=== PATIENT | male | born 1955 | race Caucasian/White ===

== ENCOUNTER 2019-02-06 21:17 | Emergency (ER) | payer BC, OTHER ==
--- NOTE | 2019-02-06 21:39 | ED ---
HPI Diabetic - HPI Summary HPI Summary: This patient is a 63 year old M brought to ED by EMS with a chief complaint of hypoglycemia since 2029 today. Per EMS, patient had BS 32 mg/dl, so he was given amp of D10 and PO glucose, which brought his BS up to 154 mg/dl. On arrival to ED, patient has BS 87 mg/dl. Patient is a known diabetic. He thinks he ate after taking insulin. Patient reports tiredness, fogginess. Patient denies pain, infection, fever, CP. The patient rates the pain 0/10 in severity. Symptoms aggravated by nothing. Symptoms alleviated by EMS treatment. - History Of Current Complaint Chief Complaint: EDDiabeticProb Time Seen by Provider: 02/06/19 21:30 Hx Obtained From: Patient, EMS Onset/Duration: Lasting Hours - Since 2029, Still Present Timing: Constant Severity Initially: Severe Severity Currently: Mild Character: Lethargic Aggravating: Nothing Alleviating: EMS Treatment Associated Signs & Symptoms: Negative - Pain, fever, infection, CP - Allergies/Home Medications Allergies/Adverse Reactions: Allergies Allergy/AdvReac Type Severity Reaction Status Date / Time No Known Allergies Allergy Verified 02/06/19 21:30 PMH/Surg Hx/FS Hx/Imm Hx Endocrine/Hematology History: Reports: Hx Diabetes Cardiovascular History: Reports: Hx Hypertension - Surgical History Surgery Procedure, Year, and Place: Right knee surgery Infectious Disease History: No Infectious Disease History: Denies: Traveled Outside the [place] in Last 30 Days - Family History Known Family History: Positive: Cardiac Disease - mother, Hypertension - mother , Diabetes - father - Social History Alcohol Use: Daily Hx Substance Use: No Substance Use Type: Reports: None Hx Tobacco Use: No Smoking Status (MU): Never Smoked Tobacco Review of Systems Negative: Fever Negative: Chest Pain Negative: Arthralgia, Myalgia Neurological: Other - Tiredness, fogginess All Other Systems Reviewed And Are Negative: Yes Physical Exam - Summary Physical Exam Summary: Appearance: Well appearing, no pain distress Skin: warm, dry, reflects adequate perfusion Head/face: normal Eyes: EOMI, LAKESHIA ENT: normal Neck: supple, non-tender Respiratory: CTA, breath sounds present Cardiovascular: RRR, pulses symmetrical Abdomen: non-tender, soft Musculoskeletal: normal, strength/ROM intact Neuro: normal, sensory motor intact, A&Ox3 Triage Information Reviewed: Yes Vital Signs On Initial Exam: Initial Vitals Temp Pulse Resp BP Pulse Ox 96.8 F 65 16 178/80 98 02/06/19 21:20 02/06/19 21:20 02/06/19 21:20 02/06/19 21:20 02/06/19 21:20 Vital Signs Reviewed: Yes Diagnostics - Vital Signs Vital Signs Temp Pulse Resp BP Pulse Ox 02/06/19 21:24 65 8 178/80 95 02/06/19 21:20 96.8 F 65 16 178/80 98 - Laboratory Result Diagrams: 02/06/19 22:12 02/06/19 22:12 Lab Statement: Any lab studies that have been ordered have been reviewed, and results considered in the medical decision making process. - Radiology CXR Radiology Interpretation Completed By: ED Physician Summary of Radiographic Findings: No acute processes, pending official radiology report. - EKG 2138 Cardiac Rate: NL - 61 EKG Rhythm: Sinus Rhythm ST Segment: Normal Ectopy: None Summary of EKG Findings: NSR at 61 BPM, no acute changes. Re-Evaluation - Re-Evaluation First Eval Re-Evaluation Time: 23:25 Comment: Discussed results with patient, who reports feeling fine. Patient will be discharged home with dx of diabetes and hypoglycemia. Patient understands and agrees with this plan. Diabetic Course/Dx - Course Course Of Treatment: This patient is a 63 year old M brought to ED by EMS with a chief complaint of hypoglycemia since 2030 today. EKG at 2139 revealed NSR at 61 BPM, no acute changes. In the ED course, the patient was given a sandwich. Blood work obtained. CXR revealed no acute processes, pending official radiology report. Patient will be discharged home with dx of diabetes and hypoglycemia. Patient understands and agrees with this plan. - Diagnoses Provider Diagnoses: Diabetes, Hypoglycemia Discharge - Sign-Out/Discharge Documenting (check all that apply): Patient Departure - Discharge Patient Received Moderate/Deep Sedation with Procedure: No - Discharge Plan Condition: Stable Disposition: HOME Patient Education Materials: Hypoglycemia in a Person with Diabetes (ED) Referrals: Cyrus Douglas MD [Primary Care Provider] - Additional Instructions: Follow-up with your primary care provider in three days. RETURN TO THE ER FOR WORSENING OR CHANGING SYMPTOMS. - Billing Disposition and Condition Condition: STABLE Disposition: Home - Attestation Statements Document Initiated by Scribe: Yes Documenting Scribe: Cyrus Rogel Provider For Whom Scribe is Documenting (Include Credential): Devon Navarro MD Scribe Attestation: I, Cyrus Rogel, scribed for Devon Navarro MD on 02/06/19 at 2335. Scribe Documentation Reviewed: Yes Provider Attestation: The documentation as recorded by the scribe, Cyrus Rogel accurately reflects the service I personally performed and the decisions made by me, Devon Navarro MD Status of Scribe Document: Viewed
[2019-02-06 22:18] LABS: ABS Basophils 0.1 10^3/ul (0-0.2); ABS Eosinophils 0.5 10^3/ul (0-0.6); ABS Lymphocytes 1.1 10^3/ul (1.0-4.8); ABS Monocytes 0.6 10^3/ul (0-0.8); ABS Neutrophils 5.8 10^3/ul (1.5-7.7); Eosinophil % 6.5 %; Hematocrit 31 % (42-52); Hemoglobin 10.4 g/dL (14.0-18.0); Lymphocyte % 13.8 %; Mean Corpuscular HGB Conc 34 g/dL (31-36); Mean Corpuscular Hemoglobin 30 pg (27-31); Mean Corpuscular Volume 88 fL (80-94); Mean Platelet Volume 6.5 fL (7.4-10.4); Platelet Count 357 10^3/uL (150-450); Red Blood Count 3.49 10^6 /uL (4.18-5.48); Red Cell Distribution Width 15 % (10-15); White Blood Count 8.1 10^3/uL (3.5-10.8)
[2019-02-06 22:28] LABS: Activated Partial Thrombo Time 33.8 seconds (26.0-38.0); INR 0.93 (0.82-1.09)
[2019-02-06 22:35] LABS: BUN/Creatinine Ratio 30.9 (8-20); Calcium 8.7 mg/dL (8.6-10.3); EGFR African American 43.3 (>60); EGFR Non-African American 35.8 (>60); Globulin 3.9 g/dL (2-4); Potassium 4.4 mmol/L (3.5-5.0); Total Bilirubin 0.4 mg/dL (0.2-1.0); Total Protein 7.9 g/dL (6.4-8.9)
[2019-02-06 23:45] VITALS: BP 165/114
== END 2019-02-06 23:44 | disposition home or self-care (01) ==
LOC: ED 21:17
DX: E11.649 Type 2 diabetes mellitus with hypoglycemia without coma (principal); Z79.4 Long term (current) use of insulin
CPT/HCPCS: 36415; 71045; 80053; 83605; 84484; 85025; 85610; 85730; 93005; 99284